=== PATIENT | male | born 1950 | race Caucasian/White ===

== ENCOUNTER 2024-03-22 13:14 | Inpatient (IN) | payer MEDICARE, BC ==
[~2024-03-22] VITALS: Ht 188 cm; Wt 86.6 kg
[2024-03-22] MEDS ORDERED: TRAZ-182 PO (13:48)
[2024-03-22] MEDS ORDERED: SERT50TA PO (13:48)
[2024-03-22] MEDS ORDERED: LISI20TA30 PO (13:48)
[2024-03-22] MEDS ORDERED: ACET-2154 PO (13:48)
[2024-03-22] MEDS ORDERED: ROSU10TA2 PO (13:48)
[2024-03-22] MEDS ORDERED: LORA0.5T48 PO (13:48)
[2024-03-22] MEDS ORDERED: OLAN5TAB3 PO (13:48)
[2024-03-22] MEDS ORDERED: VENL150T PO (13:48)
[2024-03-22] MEDS ORDERED: HYDR-4209 PO (13:48)
[2024-03-22 14:12] LABS: BASOPHILS # (AUTO) 0.2 K/UL (0.0-0.2); BASOPHILS % (AUTO) 2.6 % (0.0-2.0); EOSINOPHILS % (AUTO) 0.4 % (0.0-7.0); HEMOGLOBIN 15.4 g/dL (12.5-16.3); LYMPHOCYTES % (AUTO) 11.7 % (20.5-51.5); MEAN CORPUSCULAR HEMOGLOBIN 32.4 uug (23.8-33.4); MEAN CORPUSCULAR HGB CONC 34 g/dL (32.5-36.3); MEAN CORPUSCULAR VOLUME 94.9 fL (73.0-96.2); MONOCYTES # (AUTO) 0.7 K/uL (0.1-1.30); MONOCYTES % (AUTO) 8.2 % (0.0-11.0); NEUTROPHILS # (AUTO) 6.5 K/uL (1.8-8.9); NEUTROPHILS % (AUTO) 77.1 % (38.5-71.5); PLATELET COUNT (AUTO) 178 K/uL (152-348); RED BLOOD CELL COUNT(AUTO) 4.74 MIL/uL (4.06-5.63); RED CELL DISTRIBUTION WIDTH 13.7 % (12.1-16.2); WHITE BLOOD COUNT (AUTO) 8.5 K/uL (3.6-10.2)
[2024-03-22 14:14] LABS: DIFFERENTIAL COMMENT 1
[2024-03-22 14:25] LABS: ETHANOL < 3 MG/DL (0-10)
[2024-03-22 14:26] LABS: AMMONIA < 10 umol/L (11-32)
[2024-03-22] MEDS ORDERED: ZIPRASIDONE MESYLATE 20 MG VIAL IM ONE (14:32)
[2024-03-22 14:33] LABS: CALCIUM 8.9 mg/dL (8.5-10.1); CARBON DIOXIDE 27 mmol/L (21-32); CHLORIDE 105 mmol/L (98-107); CREATININE 1.3 mg/dL (0.6-1.3); GLUCOSE 121 mg/dL (74-106); SODIUM SERUM 141 mmol/L (136-145); UREA NITROGEN, BLOOD 20 mg/dL (7-18)
[2024-03-22 14:36] LABS: THYROID STIMULATING HORMONE 1.773 mIU/mL (0.358-3.740)
[2024-03-22 14:37] LABS: ACETAMINOPHEN < 10.0 ug/mL (10-30); ALANINE AMINOTRANSFERASE 25 U/L (16-63); ALBUMIN 3.9 g/dL (3.4-5.0); ALKALINE PHOSPHATASE 62 U/L (50-136); ASPARTATE AMINOTRANSFERASE 32 U/L (15-37); BILIRUBIN,DIRECT 0.1 mg/dL (0.0-0.2); BILIRUBIN,TOTAL 0.6 mg/dL (0.2-1.0); TOTAL PROTEIN, SERUM 7.1 g/dL (6.4-8.2)
[2024-03-22] MEDS: ZIPRASIDONE MESYLATE 20 MG VIAL IM ONE (14:37)
[2024-03-22 14:54] LABS: LYMPHOCYTES % (MANUAL) 13 % (20-40); MONOCYTES % (MANUAL) 10 % (2-10); NEUTROPHILS % (MANUAL) 77 % (42-75); PLATELET ESTIMATE ADEQUATE
[2024-03-22 17:13] VITALS: BP 148/106; TEMP 97.2; O2SAT 98
[2024-03-22] MEDS ORDERED: TEMAZEPAM 7.5 MG CAPSULE PO PRN (18:00)
[2024-03-22] MEDS: BLOOD SUGAR DIAGNOSTIC 1 EACH STRIP VI ONE (18:00)
[2024-03-22 20:00] VITALS: BP 106/63; TEMP 98; O2SAT 98
[2024-03-22] MEDS: CLONAZEPAM 0.5 MG TABLET PO PRN (21:53)
[2024-03-22] MEDS ORDERED: MAG HYDROX/AL HYDROX/SIMETH 30 ML LIQUID UDC PO PRN (23:15)
[2024-03-22] MEDS ORDERED: ACETAMINOPHEN 325 MG TABLET PO PRN (23:15)
[2024-03-22] MEDS ORDERED: MAGNESIUM HYDROXIDE 30 ML LIQUID UDC PO PRN (23:15)
[2024-03-23] MEDS: diphenhydrAMINE 50 MG/1 ML VIAL IM ONE (06:30)
[2024-03-23] MEDS: ZIPRASIDONE MESYLATE 20 MG VIAL IM ONE (06:31)
[2024-03-23 08:05] VITALS: BP 90/55; TEMP 98.2; O2SAT 96
[2024-03-23 08:57] LABS: CALCIUM 9.4 mg/dL (8.5-10.1); CARBON DIOXIDE 28 mmol/L (21-32); CHLORIDE 106 mmol/L (98-107); CREATININE 1.5 mg/dL (0.6-1.3); GLUCOSE 104 mg/dL (74-106); POTASSIUM 3.8 mmol/L (3.5-5.1); SODIUM SERUM 142 mmol/L (136-145); UREA NITROGEN, BLOOD 22 mg/dL (7-18)
[2024-03-23] MEDS: VENLAFAXINE XR 150 MG CAP.SR.24H PO SCH (09:55)
[2024-03-23] MEDS: OLANZAPINE 5 MG TABLET PO SCH ×2 (09:55→20:10)
[2024-03-23] MEDS ORDERED: ACETAMINOPHEN 325 MG TABLET-SA PATIENTS-PAIN ONLY PO PRN (11:00)
[2024-03-23 18:19] VITALS: BP 134/62; TEMP 98.2; O2SAT 96
[2024-03-23 20:00] VITALS: BP 147/89; TEMP 98.7; O2SAT 98
[2024-03-23] MEDS: TRAZODONE 50 MG TABLET PO SCH (20:10)
[2024-03-23] MEDS: DONEPEZIL 5 MG TABLET PO SCH (20:10)
[2024-03-23] MEDS: ATORVASTATIN 40 MG TABLET PO SCH (20:10)
[2024-03-23 23:24] LABS: *BILIRUBIN,URIN 1+ (NEGATIVE); *BLOOD, URINE NEGATIVE (NEGATIVE); *CLARITY,URINE CLEAR (CLEAR); *COLOR,URINE YELLOW (YELLOW); *KETONES,URINE TRACE (NEGATIVE); *PROTEIN,URINE NEGATIVE (NEGATIVE); *UROBILINOGEN,URINE 0.2 E.U./dl (NORMAL); LEUKOCYTE ESTERASE ,URINE NEGATIVE (NEGATIVE); NITRITE, URINE NEGATIVE (NEGATIVE); PH,URINE 5.5 (5.0-8.0); UGLUCOSE NEGATIVE (NEGATIVE)
[2024-03-23 23:33] LABS: *AMPHETAMINE, URINE NEGATIVE (NEGATIVE); *BARBITURATE, URINE NEGATIVE (NEGATIVE); *BENZODIAZEPINE, URINE POSITIVE (NEGATIVE); *CANNABINOID, URINE POSITIVE (NEGATIVE); *COCCAINE, URINE NEGATIVE (NEGATIVE); *OPIATE, URINE NEGATIVE (NEGATIVE); *PHENCYCLIDINE SCREEN,URINE NEGATIVE (NEGATIVE)
[2024-03-23 23:34] LABS: FENTANYL, URINE NEGATIVE (NEGATIVE)
[2024-03-23 23:40] LABS: *CREATININE,URINE 310.4 mg/dL (30-125); *URINE TOTAL PROTEIN RANDOM 25.1 mg/dL (<150/24HR)
[2024-03-24 08:09] LABS: BASOPHILS % (AUTO) 0.4 % (0.0-2.0); EOSINOPHILS # (AUTO) 0.1 K/uL (0.0-0.7); EOSINOPHILS % (AUTO) 1.8 % (0.0-7.0); HEMATOCRIT 42.6 % (36.7-47.1); HEMOGLOBIN 14.8 g/dL (12.5-16.3); LYMPHOCYTES # (AUTO) 1.2 K/uL (0.8-4.8); LYMPHOCYTES % (AUTO) 21.9 % (20.5-51.5); MEAN CORPUSCULAR HEMOGLOBIN 32.8 uug (23.8-33.4); MEAN CORPUSCULAR HGB CONC 35 g/dL (32.5-36.3); MEAN CORPUSCULAR VOLUME 94.1 fL (73.0-96.2); MONOCYTES # (AUTO) 0.6 K/uL (0.1-1.30); MONOCYTES % (AUTO) 11.6 % (0.0-11.0); NEUTROPHILS # (AUTO) 3.6 K/uL (1.8-8.9); NEUTROPHILS % (AUTO) 64.3 % (38.5-71.5); PLATELET COUNT (AUTO) 143 K/uL (152-348); RED BLOOD CELL COUNT(AUTO) 4.53 MIL/uL (4.06-5.63); RED CELL DISTRIBUTION WIDTH 13.8 % (12.1-16.2); WHITE BLOOD COUNT (AUTO) 5.5 K/uL (3.6-10.2)
[2024-03-24 08:17] LABS: DIFFERENTIAL COMMENT 1
[2024-03-24 08:23] LABS: ALBUMIN 3.4 g/dL (3.4-5.0); BILIRUBIN,TOTAL 0.9 mg/dL (0.2-1.0); CALCIUM 8.9 mg/dL (8.5-10.1); CREATININE 1.3 mg/dL (0.6-1.3); MAGNESIUM 2.4 mg/dL (1.8-2.4); PHOSPHOROUS 3.6 mg/dL (2.5-4.9); POTASSIUM 3.8 mmol/L (3.5-5.1); TOTAL PROTEIN, SERUM 6.5 g/dL (6.4-8.2)
[2024-03-24] MEDS: LISINOPRIL 10 MG TABLET PO SCH (08:41)
[2024-03-24 08:50] VITALS: BP 124/47; TEMP 98; O2SAT 96
[2024-03-24] MEDS ORDERED: LISINOPRIL 20 MG TABLET PO SCH (09:00)
[2024-03-24] MEDS: NEOMY/BACITRAC/POLYMI OINT 28.35 GM TUBE TOP SCH (11:09)
[2024-03-24 15:42] VITALS: BP 102/55; TEMP 98; O2SAT 96
[2024-03-24 20:00] VITALS: BP 137/60; TEMP 98.1; O2SAT 99
[2024-03-25 07:54] VITALS: BP 116/65; TEMP 98.1; O2SAT 96
[2024-03-25] MEDS: HYDROCODONE/APAP 5-325MG TABLET PO PRN (12:18)
[2024-03-25 16:57] VITALS: BP 111/56; TEMP 98; O2SAT 97
[2024-03-25 20:00] VITALS: BP 93/56; TEMP 97.5; O2SAT 97
[2024-03-26 08:47] VITALS: BP 154/74; TEMP 98.2; O2SAT 98
[2024-03-26 15:53] VITALS: BP 113/65; TEMP 98; O2SAT 98
[2024-03-26 19:55] VITALS: BP 154/86; TEMP 98.1; O2SAT 95
[2024-03-27 08:13] VITALS: BP 147/70; TEMP 98.3; O2SAT 98
[2024-03-27 13:06] LABS: A/G RATIO 1.2 (0.7-1.7); ALBUMIN 3.2 g/dL (2.9-4.4); ALPHA-1-GLOBULIN 0.2 g/dL (0.0-0.4); ALPHA-2-GLOBULIN 0.6 g/dL (0.4-1.0); BETA GLOBULIN 0.6 g/dL (0.7-1.3); GAMMA GLOBULIN 1.3 g/dL (0.4-1.8); GLOBULIN, TOTAL 2.7 g/dL (2.2-3.9); M-SPIKE 0.5 g/dL (Not Observed)
[2024-03-27 16:01] VITALS: BP 116/83; TEMP 98.1; O2SAT 98
[2024-03-27 19:48] VITALS: BP 137/84; TEMP 98.1; O2SAT 56
[2024-03-28] MEDS: OLANZAPINE 5 MG TABLET PO SCH (08:33)
[2024-03-28 10:46] VITALS: BP 102/70; TEMP 98.2; O2SAT 98
[2024-03-28 15:52] VITALS: BP 114/71; TEMP 98.2; O2SAT 99
[2024-03-28 20:03] VITALS: BP 155/67; TEMP 98.1; O2SAT 95
[2024-03-29 07:50] VITALS: BP 125/64; TEMP 98.2; O2SAT 98
[2024-03-29 16:08] VITALS: BP 99/69; TEMP 98; O2SAT 98
[2024-03-29 20:00] VITALS: BP 114/74; TEMP 97.1; O2SAT 96
[2024-03-30 07:55] VITALS: BP 118/64; TEMP 98.2; O2SAT 98
[2024-03-30 15:24] VITALS: BP 134/71; TEMP 98.2; O2SAT 99
[2024-03-30] MEDS: ENSURE WITH FIBER 237 ML LIQUID (CHOCOLATE) PO SCH (18:33)
[2024-03-30 20:00] VITALS: BP 145/73; TEMP 97.9; O2SAT 100
[2024-03-31] MEDS ORDERED: QUETIAPINE FUMARATE 100 MG TABLET PO SCH (07:30)
[2024-03-31 09:21] VITALS: BP 141/79; TEMP 98; O2SAT 98
[2024-03-31 15:13] VITALS: BP 152/86; TEMP 98; O2SAT 98
== END 2024-03-31 16:09 | DRG 885 ==
LOC: ER 13:14 → GPS 13:30
PROVIDERS: ADMIT Nurse Practitioner Psychiatric/Mental Health; ATTEND Nurse Practitioner Acute Care
DX: F33.3 Major depressive disorder, recurrent, severe with psychotic symptoms (principal); N18.9 Chronic kidney disease, unspecified; N17.9 Acute kidney failure, unspecified; F02.811 Dementia in other diseases classified elsewhere, unspecified severity, with agitation; G30.9 Alzheimer's disease, unspecified; F43.10 Post-traumatic stress disorder, unspecified; I12.9 Hypertensive chronic kidney disease with stage 1 through stage 4 chronic kidney disease, or unspecified chronic kidney disease; Z79.899 Other long term (current) drug therapy; M46.92 Unspecified inflammatory spondylopathy, cervical region; R74.8 Abnormal levels of other serum enzymes; R00.1 Bradycardia, unspecified
CPT/HCPCS: 36415; 70030-TC; 76770; 83735; 83970; 84100; 84155; 84165; 84300; 84443; 85025; 93005; G0480; J1200; J3486